=== PATIENT | female | born 2000 | race Hispanic/Latino ===

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

== ENCOUNTER → 2020-08-17 | Outpatient (CLI) | payer SELFPAY ==
[~2020-08-17] MED LIST: AUGM875T28 PO; PRED20TA PO
== END ==
LOC: M LABSMTC 14:33
PROVIDERS: ATTEND Pediatrics
DX: Z11.52 Encounter for screening for COVID-19 (principal)

== ENCOUNTER 2021-11-07 15:01 | Emergency (ER) | payer OTHER, SELFPAY ==
[~2021-11-07] VITALS: Ht 162.6 cm; Wt 55.9 kg
[2021-11-07] MEDS ORDERED: PROZ10CA7 PO (15:06)
[2021-11-07 16:23] LABS: BASO # 0.1 10^3/uL (0.0-0.2); BASO % 0.5 % (0.0-1.0); EOS % 0.4 % (0.0-3.0); HEMATOCRIT 37.7 % (36.0-47.0); HEMOGLOBIN 11.9 g/dl (12.0-15.5); LYMPH # 1.9 10^3/uL (1.5-5.0); LYMPH % 20.3 % (24.0-44.0); MEAN CORPUSCULAR HEMOGLOBIN 28.3 pg (27.0-33.0); MEAN CORPUSCULAR HGB CONC 31.6 g/dl (32.0-36.5); MEAN CORPUSCULAR VOLUME 89.8 fl (80.0-96.0); MONO # 0.7 10^3/uL (0.0-0.8); MONO % 7.5 % (2.0-8.0); NEUTROPHILS # 6.5 10^3/uL (1.5-8.5); NEUTROPHILS % 70.9 % (36.0-66.0); PLATELET COUNT, AUTOMATED 375 10^3/uL (150-450); WHITE BLOOD COUNT 9.2 10^3/uL (4.0-10.0)
[2021-11-07] MEDS ORDERED: NS 1,000 ML IV ONE (16:40)
[2021-11-07] MEDS ORDERED: KETOROLAC 30 MG/ML 1ML VIAL IV ONE (16:40)
[2021-11-07 16:53] LABS: ALT/SGPT 17 U/L (12-78); BILIRUBIN,DIRECT 0.1 MG/DL (0.0-0.2); BILIRUBIN,TOTAL 0.3 MG/DL (0.2-1.0); BLOOD UREA NITROGEN 13 MG/DL (7-18); CARBON DIOXIDE LEVEL 26 MEQ/L (21-32); CHLORIDE LEVEL 107 MEQ/L (98-107); CREATININE FOR GFR 0.56 MG/DL (0.55-1.30); GLOMERULAR FILTRATION RATE > 60.0 (>60); GLUCOSE, FASTING 83 MG/DL (70-100); LIPASE 91 U/L (73-393); POTASSIUM SERUM 4.2 MEQ/L (3.5-5.1); SODIUM LEVEL 140 MEQ/L (136-145); TOTAL PROTEIN 7.6 GM/DL (6.4-8.2)
[2021-11-07] MEDS ORDERED: GI COCKTAIL 50ML BTL(HYOSCYAMINE/MAALOX/LIDOCAINE VISCOUS)(1:3:1) PO ONE (17:30)
[2021-11-07] MEDS ORDERED: ONDA4TAB6 PO (17:59)
[2021-11-07 18:09] VITALS: BP 107/68
== END 2021-11-07 18:25 | disposition home or self-care (01) ==
LOC: M ED 15:01
DX: R10.11 Right upper quadrant pain (principal)
CPT/HCPCS: 80048; 80076; 83690; 84702; 85025; 96361; 96374; 99284; J1885

== ENCOUNTER → 2021-11-08 | Outpatient (REF) | payer OTHER ==
[~2021-11-08] MED LIST changes: +ONDA4TAB6 PO; +PROZ10CA7 PO
== END ==
LOC: M LAB REF 15:06
PROVIDERS: ATTEND Nurse Practitioner Family
DX: R11.2 Nausea with vomiting, unspecified (principal); R10.9 Unspecified abdominal pain

== ENCOUNTER 2021-11-13 14:40 | Emergency (ER) | payer OTHER, SELFPAY ==
[~2021-11-13] VITALS: Ht 162.6 cm; Wt 54.5 kg
[2021-11-13] MEDS ORDERED: PANTOPRAZOLE 40MG VIAL IV ONE (16:15)
[2021-11-13] MEDS ORDERED: SUCRALFATE 1 GM TAB PO ONE (16:15)
[2021-11-13] MEDS ORDERED: GI COCKTAIL 50ML BTL(HYOSCYAMINE/MAALOX/LIDOCAINE VISCOUS)(1:3:1) PO ONE (16:15)
[2021-11-13 16:47] LABS: BASO % 0.3 % (0.0-1.0); EOS % 0.1 % (0.0-3.0); HEMOGLOBIN 12.5 g/dl (12.0-15.5); LYMPH # 1.5 10^3/uL (1.5-5.0); LYMPH % 14.2 % (24.0-44.0); MEAN CORPUSCULAR HEMOGLOBIN 28.3 pg (27.0-33.0); MEAN CORPUSCULAR HGB CONC 32.1 g/dl (32.0-36.5); MEAN CORPUSCULAR VOLUME 88.2 fl (80.0-96.0); MONO # 0.6 10^3/uL (0.0-0.8); MONO % 5.7 % (2.0-8.0); NEUTROPHILS # 8.3 10^3/uL (1.5-8.5); NEUTROPHILS % 79.4 % (36.0-66.0); PLATELET COUNT, AUTOMATED 385 10^3/uL (150-450); RED BLOOD COUNT 4.42 10^6/uL (4.00-5.40); WHITE BLOOD COUNT 10.5 10^3/uL (4.0-10.0)
[2021-11-13 17:09] LABS: HCG, SERUM QUALITATIVE NEGATIVE (NEGATIVE)
[2021-11-13 17:18] LABS: ALBUMIN 4.2 GM/DL (3.2-5.2); ALT/SGPT 20 U/L (12-78); BILIRUBIN,DIRECT 0.1 MG/DL (0.0-0.2); BILIRUBIN,TOTAL 0.5 MG/DL (0.2-1.0); LIPASE 89 U/L (73-393)
[2021-11-13] MEDS ORDERED: ISOVUE-370 76% 100ML VIAL As Ordered ONE (17:19)
[2021-11-13] MEDS ORDERED: DICYCLOMINE 10 MG CAP PO ONE (19:00)
[2021-11-13] MEDS ORDERED: KETOROLAC 30 MG/ML 1ML VIAL IV ONE (19:00)
[2021-11-13] MEDS ORDERED: DICY1CAP8 PO (19:32)
[2021-11-13] MEDS ORDERED: REGL10TA6 PO (19:32)
[2021-11-13 19:53] VITALS: BP 106/92
[2021-11-13] MEDS ORDERED: METOCLOPRAMIDE 10MG TAB PO ONE (20:00)
== END 2021-11-13 19:54 | disposition home or self-care (01) ==
LOC: M ED 14:40
DX: R11.2 Nausea with vomiting, unspecified (principal); R10.9 Unspecified abdominal pain; Z79.899 Other long term (current) drug therapy
CPT/HCPCS: 74177; 80047; 80076; 81000; 83690; 84703; 85025; 87086; 96374; 96375; 99284; C9113; J1885; Q9967